=== PATIENT | male | born 1990 | race Caucasian/White ===

== ENCOUNTER 2018-11-08 13:21 | Inpatient (IN) | payer OTHER ==
[2018-11-08 17:01] VITALS: BMI 29.1
--- NOTE | 2018-11-08 17:30 | HP ---
CIWA Score - Admission Criteria [facility] Guidelines: Admission for Medically Managed Detox: Requires at least one of the followin. CIWA greater than 12 2. Seizures within the past 24 hours 3. Delirium tremens within the past 24 hours 4. Hallucinations within the past 24 hours 5. Acute intervention needed for co occurring medical disorder 6. Acute intervention needed for co occurring psychiatric disorder 7. Severe withdrawal that cannot be handled at a lower level of care (continued vomiting, continued diarrhea, abnormal vital signs) requiring intravenous medication and/or fluids 8. Admission ROS [facility] - HPI Chief Complaint: ETOH and Benzo rehab Allergies/Adverse Reactions: Allergies Allergy/AdvReac Type Severity Reaction Status Date / Time No Known Allergies Allergy Verified 11/08/18 17:14 History of Present Illness: 28 yo male with hx of nicotine, xanax, valium and alcohol is here seeking rehabilitation for the first time. Patient reports was release from [facility] yesterday where he completed detox. Patient reports cellulitis of the right lower leg in which he was started on amoxicillin yesterday while in long term. PMHX: Hx of PE Jul 2018, pancreatitis, GERD, manic depression, anxiety. Denies suicidal / homicidal ideation./ Denies hx of seizures. Reports remote hx of ETOH blackout. Exam Limitations: No Limitations - Ebola screening Have you traveled outside of the country in the last 21 days: No Have you had contact with anyone from an Ebola affected area: No Have you been sick,other than usual withdrawal symptoms: No Do you have a fever: No - Review of Systems Constitutional: Chills EENT: reports: No Symptoms Reported Respiratory: reports: No Symptoms reported Cardiac: reports: No Symptoms Reported GI: reports: No Symptoms Reported : reports: No Symptoms Reported Musculoskeletal: reports: No Symptoms Reported Integumentary: reports: Erythema, Other (cellulitis right burrell) Neuro: reports: Headache Endocrine: reports: Excessive Sweating, Increased Thirst Hematology: reports: No Symptoms Reported Psychiatric: reports: Orientated x3, Anxious, Depressed Other Systems: Reviewed and Negative Patient History - Patient Medical History Hx Anemia: No Hx Asthma: No Hx Chronic Obstructive Pulmonary Disease (COPD): No Hx Cancer: No Hx Cardiac Disorders: No Hx Congestive Heart Failure: No Hx Hypertension: No Hx Hypercholesterolemia: No Hx Pacemaker: No HX Cerebrovascular Accident: No Hx Seizures: No Hx Dementia: No Hx Diabetes: No Hx Gastrointestinal Disorders: Yes (acid reflux.) Hx Liver Disease: No Hx Genitourinary Disorders: No Hx Sexually Transmitted Disorders: No Hx Renal Disease (ESRD): No Hx Thyroid Disease: No Hx Human Immunodeficiency Virus (HIV): No (last tested Jun 2018 NEG results ) Hx Hepatitis C: No Hx Depression: Yes Hx Suicide Attempt: No Hx Bipolar Disorder: No Hx Schizophrenia: No - Patient Surgical History Past Surgical History: Yes Hx Abdominal Surgery: Yes (Sx for perforated ulcer in 2012) Anesthesia Reaction: No - PPD History Previous Implant?: Yes Documented Results: Negative w/o proof Implanted On Prior [facility] Admission?: No PPD to be Administered?: Yes - Smoking Cessation Smoking history: Current every day smoker Have you smoked in the past 12 months: Yes Aproximately how many cigarettes per day: 10 Hx Chewing Tobacco Use: No Initiated information on smoking cessation: Yes 'Breaking Loose' booklet given: 11/08/18 - Substance & Tx. History Hx Alcohol Use: Yes Hx Substance Use: Yes Substance Use Type: Alcohol, Tranquilizers Hx Substance Use Treatment: No (Reports seen a psychiatrist in Jun 2018 for alcohol dependence ) - Substances Abused Alcohol Route: Oral Frequency: Daily Amount used: 3-4 pints rum Age of first use: 22 Date of Last Use: 07/13/18 Alprazolam (Xanax) Route: Oral Frequency: Daily Amount used: 4mg Age of first use: 25 Date of Last Use: 07/13/18 Diazepam Route: Oral Frequency: Daily Amount used: 10mg Age of first use: 25 Date of Last Use: 07/13/18 Family Disease History - Family Disease History Family History: Denies Admission Physical Exam [facility] - Vital Signs Vital Signs: Vital Signs - 24 hr 11/08/18 16:59 Temperature 102.7 F H Pulse Rate 112 H Respiratory 18 Rate Blood Pressure 121/71 - Physical General Appearance: Yes: Nourished, Appropriately Dressed, Anxious HEENTM: Yes: EOMI, Hearing grossly Normal, Normal ENT Inspection, Normocephalic , Normal Voice, ZEO, Pharynx Normal, Tm's normal Respiratory: Yes: Chest Non-Tender, Lungs Clear, Normal Breath Sounds, No Respiratory Distress, No Accessory Muscle Use Neck: Yes: Within Normal Limits Breast: Yes: Breast Exam Deferred Cardiology: Yes: Within Normal Limits Abdominal: Yes: Normal Bowel Sounds, Non Tender, Flat, Soft Genitourinary: Yes: Within Normal Limits Back: Yes: Normal Inspection Musculoskeletal: Yes: full range of Motion, Gait Steady, Pelvis Stable Extremities: Yes: Normal Capillary Refill, Normal Range of Motion, Erythema ( right LE, + warm) Neurological: Yes: Within Normal Limits Integumentary: Yes: Warm (right lower extremity), Erythema Lymphatic: Yes: Within Normal Limits - Diagnostic (1) Cellulitis of right lower leg Current Visit: Yes Status: Acute (2) Alcohol dependence Current Visit: Yes Status: Acute Qualifiers: Substance use status: uncomplicated Qualified Code(s): F10.20 - Alcohol dependence, uncomplicated (3) Sedative hypnotic or anxiolytic dependence Current Visit: Yes Status: Acute (4) Hx pulmonary embolism Current Visit: Yes Status: Chronic (5) GERD (gastroesophageal reflux disease) Current Visit: Yes Status: Chronic Qualifiers: Esophagitis presence: without esophagitis Qualified Code(s): K21.9 - Gastro -esophageal reflux disease without esophagitis BHS Breath Alcohol Content Breath Alcohol Content: 0 Urine Drug Screen - Results Drug Screen Negative: Yes Inpatient Rehab Admission - Initial Determination Are CD services needed?: Yes Free of communicable disease: Yes Not in need of hospitalization: Yes - Rehab Admission Criteria Previous failed treatment: No Poor recovery environment: Yes Comorbidities: Yes Lacks judgement: Yes Patient is meeting Inpatient Rehab admission criteria:: Yes
[2018-11-08] MEDS ORDERED: MAGNESIUM CITRATE 300 ML BOTTLE PO PRN (17:35)
[2018-11-08] MEDS ORDERED: LOPERAMIDE HCL 2 MG CAPSULE PO PRN (17:35)
[2018-11-08] MEDS ORDERED: guaiFENesin/D-METHORPHAN HB 10 ML UNIT-DOSE CUPS PO PRN (17:35)
[2018-11-08] MEDS ORDERED: MAGNESIUM HYDROX 2400MG/30ML ORAL SUSPENSION 30 ML CUP PO PRN (17:35)
[2018-11-08] MEDS ORDERED: hydrOXYzine PAMOATE 50 MG CAPSULE (FP) PO PRN (17:35)
[2018-11-08] MEDS ORDERED: MENTHOL/PHENOL 1 EACH UD MM PRN (17:35)
[2018-11-08] MEDS ORDERED: P-EPHED 60MG/TRIPROLIDI 2.5MG TABLET PO PRN (17:35)
[2018-11-08] MEDS ORDERED: MAG HYDROX/AL HYDROX/SIMETH 30 ML UNIT-DOSE CUP PO PRN (17:35)
[2018-11-08] MEDS ORDERED: TUBERCULIN PPD 5 TU/0.1ML VIAL ID ONE (19:03)
[2018-11-08] MEDS: BACITRACIN 0.9 GM PACKET TP SCH (19:41)
[2018-11-08] MEDS: CEPHALEXIN MONOHYDRATE 500 MG CAPSULE (UD) PO SCH ×2 (19:41→23:57)
[2018-11-08] MEDS: ACETAMINOPHEN 325 MG TABLET (FP) PO PRN (19:43)
[2018-11-08] MEDS: THIAMINE HCL 100 MG TABLET (FP) PO SCH (21:25)
[2018-11-08] MEDS: MELATONIN 5 MG TABLETS PO PRN (21:26)
[2018-11-09 01:51] LABS: URINE APPEARANCE TURBID; URINE BILIRUBIN NEGATIVE (<2.0 mg/dL); URINE COLOR RED; URINE GLUCOSE (UA) NEGATIVE (NEGATIVE); URINE KETONE NEGATIVE (NEGATIVE); URINE LEUK ESTERASE NEGATIVE (NEGATIVE); URINE NITRITE NEGATIVE (NEGATIVE); URINE PROTEIN 1+ (NEGATIVE); URINE UROBILINOGEN NEGATIVE mg/dL (0.2-1.0)
[2018-11-09 02:06] LABS: EPI CELLS RARE /HPF (FEW); URINE BACTERIA FEW /hpf (NONE SEEN); URINE MUCUS MANY
[2018-11-09] MEDS: ACETAMINOPHEN 325 MG TABLET (FP) PO PRN ×2 (06:12→17:38)
[2018-11-09] MEDS: CEPHALEXIN MONOHYDRATE 500 MG CAPSULE (UD) PO SCH ×4 (06:12→23:37)
[2018-11-09] MEDS: PANTOPRAZOLE 40 MG TABLET (FP) PO SCH (09:41)
[2018-11-09] MEDS: PRENATAL VITAMINS W/ FOLIC ACID TABLET (FP) PO SCH (09:41)
[2018-11-09] MEDS: RIVAROXABAN 20 MG TABLET PO SCH (09:41)
[2018-11-09] MEDS: BACITRACIN 0.9 GM PACKET TP SCH (09:42)
[2018-11-09] MEDS: NICOTINE 14 MG/24 HOURS TOPICAL PATCH TD SCH (09:42)
--- NOTE | 2018-11-09 10:27 | CONSULT ---
[facility] Psychiatric Consult - Data Date of interview: 11/09/18 Admission source: Drug court Identifying data: Mr Pisano is a 28 years old single male, father of 2 children, unemployed with no source of income, living with his aunt seeking rehab treatment for alcohol and benzodiazepine Substance Abuse History: Reports history of alcohol, xanax and valium use. refer to addiction counselor's summary for further information. Medical History: Significant for cellulitis right lower leg, GERD, history of treatment for pancreatitis and pulmonary emboli and surgery for perforated ulcer in 2012. Smokes 10 cigarettes daily Psychiatric History: Reports that 5-6 years ago, his primary care physician started prescribing him Lexapro, Buspar and Seroquel for depression, anxiety and insomnia. At age 25, he started seeing a private psychiatrist in [place]. He was rediagnosed with Bipolar Disorder and Xanax TID and Valium HS were added to his psychotropic regimen. He saw that private psychiatrist till he was arrested and jailed in [facility] in Jul 2018. He was released from residential on 11/07/18 and referred to this facility on a court mandated treatment. He was seeing a psychiatrist while in residential and he was released on Lexapro 30 mg po daily, Buspar 15 mg po BID and Seroquel 600 mg po HS. Denies previous psychiatric hospitalization or suicidal attempt. At present , Reports feeling very anxious and sleeping poorly Physical/Sexual Abuse/Trauma History: Denies history of emotional, physical or sexual abuse as wel as DV relationship. No service Additional Comment: Reports history of one previous arrest on charges on menacing a police or patrol park officer and reckless endangerment. He is on probation Mental Status Exam - Mental Status Exam Alert and Oriented to: Time, Place, Person Cognitive Function: Fair Patient Appearance: Well Groomed Mood: Anxious (very) Affect: Appropriate Patient Behavior: Cooperative Speech Pattern: Clear Voice Loudness: Normal Thought Process: Intact Thought Disorder: Not Present Hallucinations: Denies Suicidal Ideation: Denies Homicidal Ideation: Denies Insight/Judgement: Fair Sleep: Poorly Appetite: Good Muscle strength/Tone: Normal Gait/Station: Normal Psychiatric Findings - Problem List ([place] 1, 2,3) (1) Bipolar disorder Current Visit: Yes Status: Chronic (2) Anxiety disorder Current Visit: Yes Status: Chronic (3) Substance-induced anxiety disorder Current Visit: Yes Status: Acute (4) Substance-induced sleep disorder Current Visit: Yes Status: Acute (5) Alcohol dependence Current Visit: Yes Status: Acute Qualifiers: Substance use status: uncomplicated Qualified Code(s): F10.20 - Alcohol dependence, uncomplicated (6) Sedative hypnotic or anxiolytic dependence Current Visit: Yes Status: Acute (7) Nicotine dependence Current Visit: Yes Status: Chronic (8) Cellulitis of right lower leg Current Visit: Yes Status: Acute (9) GERD (gastroesophageal reflux disease) Current Visit: Yes Status: Chronic Qualifiers: Esophagitis presence: without esophagitis Qualified Code(s): K21.9 - Gastro -esophageal reflux disease without esophagitis (10) Hx pulmonary embolism Current Visit: Yes Status: Resolved - Initial Treatment Plan Initial Treatment Plan: 1) Continue Lexapro 30 mg po daily, Buspar 15 mg po BID and Seroquel 600 mg po HS. 2) Start Vistaril 50 mg po Q 4hrs prn for anxiety. 3) Continue inpatient detoxification
--- NOTE | 2018-11-09 11:27 | PN ---
[facility] Progress Note Note: C/O DRY AND ITCHY FEET, STATING HE CONTRACTED FOOT FUNGUS IN NURSING HOME.. PT ALSO REPORTS HE HAD PANCREATITIS IN JULY WITH AN INCIDENTAL FINDING OF BLOOD CLOT TO HIS LUNG WHILE INCARCERATED. WAS TAKEN TO [facility] WHERE HE WAS STARTED ON XERALTO AND TOLD TO COME BACK TO THEM FOR SUBSEQUENT FOLLOW UPs. Vital Signs 11/09/18 11/09/18 03:30 06:54 Temperature 99.2 F Pulse Rate 96 H Respiratory 18 18 Rate Blood Pressure 117/68 Laboratory Tests 11/08/18 22:33 Urine Color Red Urine Appearance Turbid Urine pH 6.0 Ur Specific [place] 1.024 Urine Protein 1+ H Urine Glucose (UA) Negative Urine Ketones Negative Urine Blood Negative Urine Nitrite Negative Urine Bilirubin Negative Urine Urobilinogen Negative Ur Leukocyte Esterase Negative Urine WBC (Auto) 2 Urine RBC (Auto) 2 Ur Epithelial Cells Rare Urine Bacteria Few Urine Mucus Many NAD PLAN:TINACTIN CREAM 1% APPLY DIRECTED.
--- NOTE | 2018-11-09 11:42 | EKG ---
Test Reason : Blood Pressure : / mmHG Vent. Rate : 113 BPM Atrial Rate : 113 BPM P-R Int : 170 ms QRS Dur : 094 ms QT Int : 326 ms P-R-T Axes : 038 000 029 degrees QTc Int : 447 ms SINUS TACHYCARDIA OTHERWISE NORMAL ECG NO PREVIOUS ECGS AVAILABLE Confirmed by REMY SEN, LUIS EDUARDO ([id number]) on 11/09/2018 11:41:43 AM Referred By: Confirmed By:LUIS EDUARDO ALBERTO MD
[2018-11-09 11:46] LABS: HEMOGLOBIN 12.7 GM/dL (11.7-16.9); MCH 27.9 pg (25.7-33.7); MCHC 34.3 g/dl (32.0-35.9); MEAN CELL VOLUME 81.5 fl (80-96); MEAN PLT VOLUME 7.8 fl (7.5-11.1); PLATELET COUNT 319 K/MM3 (134-434); RBC 4.54 M/mm3 (4.00-5.60); RDW 14.8 % (11.9-15.9); WHITE BLOOD COUNT 11.6 K/mm3 (4.0-10.0)
[2018-11-09 12:03] LABS: ALBUMIN 4.3 g/dl (3.4-5.0); ALK PHOS 121 U/L (45-117); ANION GAP 5 MMOL/L (8-16); BILIRUBIN,TOTAL 1.1 mg/dL (0.2-1); BLOOD UREA NITROGEN 14 mg/dL (7-18); CALCIUM 9.3 mg/dL (8.5-10.1); CHLORIDE 98 mmol/L (98-107); CO2 31 mmol/L (21-32); GLUCOSE,RANDOM 140 mg/dL (74-106); POTASSIUM 3.6 mmol/L (3.5-5.1); SGOT/AST 32 U/L (15-37); SGPT/ALT 29 U/L (13-61); SODIUM 134 mmol/L (136-145); TOT PROT 8.9 g/dl (6.4-8.2)
[2018-11-09] MEDS: ESCITALOPRAM OXALATE 10 MG TABLET (FP) PO SCH (12:12)
[2018-11-09] MEDS: TOLNAFTATE 1% CREAM 15 GM TUBE TP SCH ×2 (12:13→21:36)
[2018-11-09] MEDS: THIAMINE HCL 100 MG TABLET (FP) PO SCH (21:35)
[2018-11-09] MEDS: QUEtiapine FUMARATE 300 MG TABLET PO SCH (21:36)
[2018-11-10] MEDS: CEPHALEXIN MONOHYDRATE 500 MG CAPSULE (UD) PO SCH ×3 (06:15→17:45)
[2018-11-10] MEDS: NICOTINE 14 MG/24 HOURS TOPICAL PATCH TD SCH (10:38)
[2018-11-10] MEDS: PANTOPRAZOLE 40 MG TABLET (FP) PO SCH (10:39)
[2018-11-10] MEDS: RIVAROXABAN 20 MG TABLET PO SCH (10:39)
[2018-11-10] MEDS: ESCITALOPRAM OXALATE 10 MG TABLET (FP) PO SCH (10:39)
[2018-11-10] MEDS: PRENATAL VITAMINS W/ FOLIC ACID TABLET (FP) PO SCH (10:39)
[2018-11-10] MEDS: ACETAMINOPHEN 325 MG TABLET (FP) PO PRN ×2 (10:40→21:33)
[2018-11-10] MEDS: TOLNAFTATE 1% CREAM 15 GM TUBE TP SCH ×2 (10:42→21:45)
[2018-11-10] MEDS: BACITRACIN 0.9 GM PACKET TP SCH (10:51)
[2018-11-10] MEDS: THIAMINE HCL 100 MG TABLET (FP) PO SCH (21:32)
[2018-11-10] MEDS: QUEtiapine FUMARATE 300 MG TABLET PO SCH (21:32)
[2018-11-11] MEDS: CEPHALEXIN MONOHYDRATE 500 MG CAPSULE (UD) PO SCH ×5 (00:22→23:59)
[2018-11-11] MEDS: PRENATAL VITAMINS W/ FOLIC ACID TABLET (FP) PO SCH (10:09)
[2018-11-11] MEDS: ESCITALOPRAM OXALATE 10 MG TABLET (FP) PO SCH (10:10)
[2018-11-11] MEDS: RIVAROXABAN 20 MG TABLET PO SCH (10:10)
[2018-11-11] MEDS: BACITRACIN 0.9 GM PACKET TP SCH (10:13)
[2018-11-11] MEDS: TOLNAFTATE 1% CREAM 15 GM TUBE TP SCH ×2 (10:56→21:30)
[2018-11-11] MEDS: NICOTINE 14 MG/24 HOURS TOPICAL PATCH TD SCH (10:56)
[2018-11-11] MEDS: PANTOPRAZOLE 40 MG TABLET (FP) PO SCH (10:57)
[2018-11-11] MEDS: QUEtiapine FUMARATE 300 MG TABLET PO SCH (21:29)
[2018-11-11] MEDS: THIAMINE HCL 100 MG TABLET (FP) PO SCH (21:29)
[2018-11-11] MEDS: ACETAMINOPHEN 325 MG TABLET (FP) PO PRN (21:29)
[2018-11-12] MEDS: CEPHALEXIN MONOHYDRATE 500 MG CAPSULE (UD) PO SCH ×3 (06:19→17:49)
[2018-11-12] MEDS: PANTOPRAZOLE 40 MG TABLET (FP) PO SCH (10:09)
[2018-11-12] MEDS: PRENATAL VITAMINS W/ FOLIC ACID TABLET (FP) PO SCH (10:09)
[2018-11-12] MEDS: RIVAROXABAN 20 MG TABLET PO SCH (10:09)
[2018-11-12] MEDS: ESCITALOPRAM OXALATE 10 MG TABLET (FP) PO SCH (10:09)
[2018-11-12] MEDS: NICOTINE 14 MG/24 HOURS TOPICAL PATCH TD SCH (10:10)
[2018-11-12] MEDS: TOLNAFTATE 1% CREAM 15 GM TUBE TP SCH ×2 (10:10→21:35)
[2018-11-12] MEDS: BACITRACIN 0.9 GM PACKET TP SCH (10:10)
[2018-11-12] MEDS: ACETAMINOPHEN 325 MG TABLET (FP) PO PRN ×2 (14:12→21:36)
[2018-11-12] MEDS: THIAMINE HCL 100 MG TABLET (FP) PO SCH (21:34)
[2018-11-12] MEDS: QUEtiapine FUMARATE 300 MG TABLET PO SCH (21:34)
[2018-11-13] MEDS: RIVAROXABAN 20 MG TABLET PO SCH (10:19)
[2018-11-13] MEDS: PANTOPRAZOLE 40 MG TABLET (FP) PO SCH (10:19)
[2018-11-13] MEDS: ESCITALOPRAM OXALATE 10 MG TABLET (FP) PO SCH (10:19)
[2018-11-13] MEDS: TOLNAFTATE 1% CREAM 15 GM TUBE TP SCH ×2 (10:20→21:34)
[2018-11-13] MEDS: NICOTINE 14 MG/24 HOURS TOPICAL PATCH TD SCH (10:20)
[2018-11-13] MEDS: PRENATAL VITAMINS W/ FOLIC ACID TABLET (FP) PO SCH (10:20)
[2018-11-13] MEDS: BACITRACIN 0.9 GM PACKET TP SCH (10:21)
[2018-11-13] MEDS: QUEtiapine FUMARATE 300 MG TABLET PO SCH (21:33)
[2018-11-13] MEDS: ACETAMINOPHEN 325 MG TABLET (FP) PO PRN (21:33)
[2018-11-13] MEDS: THIAMINE HCL 100 MG TABLET (FP) PO SCH (21:33)
[2018-11-14] MEDS: PANTOPRAZOLE 40 MG TABLET (FP) PO SCH (10:33)
[2018-11-14] MEDS: TOLNAFTATE 1% CREAM 15 GM TUBE TP SCH ×2 (10:33→21:47)
[2018-11-14] MEDS: RIVAROXABAN 20 MG TABLET PO SCH (10:33)
[2018-11-14] MEDS: PRENATAL VITAMINS W/ FOLIC ACID TABLET (FP) PO SCH (10:33)
[2018-11-14] MEDS: BACITRACIN 0.9 GM PACKET TP SCH (10:33)
[2018-11-14] MEDS: NICOTINE 14 MG/24 HOURS TOPICAL PATCH TD SCH (10:34)
[2018-11-14] MEDS: ESCITALOPRAM OXALATE 10 MG TABLET (FP) PO SCH (10:34)
[2018-11-14] MEDS: ACETAMINOPHEN 325 MG TABLET (FP) PO PRN ×2 (14:16→21:46)
[2018-11-14] MEDS: QUEtiapine FUMARATE 300 MG TABLET PO SCH (21:46)
[2018-11-14] MEDS: THIAMINE HCL 100 MG TABLET (FP) PO SCH (21:47)
[2018-11-15] MEDS: ESCITALOPRAM OXALATE 10 MG TABLET (FP) PO SCH (10:15)
[2018-11-15] MEDS: PRENATAL VITAMINS W/ FOLIC ACID TABLET (FP) PO SCH (10:15)
[2018-11-15] MEDS: PANTOPRAZOLE 40 MG TABLET (FP) PO SCH (10:15)
[2018-11-15] MEDS: NICOTINE 14 MG/24 HOURS TOPICAL PATCH TD SCH (10:16)
[2018-11-15] MEDS: TOLNAFTATE 1% CREAM 15 GM TUBE TP SCH ×2 (10:17→22:27)
[2018-11-15] MEDS: RIVAROXABAN 20 MG TABLET PO SCH (12:35)
--- NOTE | 2018-11-15 14:51 | PN ---
[facility] Progress Note Note: MAT INTAKE DOCUMENTATION; PT IS A 28 Y/O MALE WITH A HX OF ALCOHOL AND BENZOS(FOR 5 YRS)-XANAX,KLONOPIN AND VALIUM USE ADMITTED TO REHAB ON 11/08/[address] [place] [address] MANDATE. (SEE H /P). PT REPORTS HE HAS NO HX OF MAT OR CD TREATMENT IN THE PAST BUT IS REQUEST FOR MAT WITH VIVTROL. PT HAS A HX GERD, PANCREATITIS,ANXIETY, DEPRESSION. RECENT CELLULITIS WITH TREATMENT WHICH IS NOW RESOLVED. PT HAS MET WITH HIS COUNSELOR STEPHANIE CHEN AND WILL BE ATTENDING [facility] PRO[facility] AFTER DISCHARGE FROM REHAB. Vital Signs - 24 hr 11/15/18 11/15/18 11/15/18 00:30 03:30 07:12 Temperature 97.7 F Pulse Rate 101 H Respiratory 18 18 18 Rate Blood Pressure 111/73 Laboratory Tests 11/08/18 11/09/18 11/09/18 22:33 08:55 08:55 WBC 11.6 H RBC 4.54 Hgb 12.7 Hct 37.0 MCV 81.5 MCH 27.9 MCHC 34.3 RDW 14.8 Plt Count 319 MPV 7.8 Sodium 134 L Potassium 3.6 Chloride 98 Carbon Dioxide 31 Anion Gap 5 L BUN 14 Creatinine 1.0 Creat Clearance w eGFR > 60 Random Glucose 140 H Calcium 9.3 Total Bilirubin 1.1 H AST 32 ALT 29 Alkaline Phosphatase 121 H Total Protein 8.9 H Albumin 4.3 Urine Color Red Urine Appearance Turbid Urine pH 6.0 Ur Specific [place] 1.024 Urine Protein 1+ H Urine Glucose (UA) Negative Urine Ketones Negative Urine Blood Negative Urine Nitrite Negative Urine Bilirubin Negative Urine Urobilinogen Negative Ur Leukocyte Esterase Negative Urine WBC (Auto) 2 Urine RBC (Auto) 2 Ur Epithelial Cells Rare Urine Bacteria Few Urine Mucus Many RPR Titer 11/09/18 08:55 WBC RBC Hgb Hct MCV MCH MCHC RDW Plt Count MPV Sodium Potassium Chloride Carbon Dioxide Anion Gap BUN Creatinine Creat Clearance w eGFR Random Glucose Calcium Total Bilirubin AST ALT Alkaline Phosphatase Total Protein Albumin Urine Color Urine Appearance Urine pH Ur Specific [place] Urine Protein Urine Glucose (UA) Urine Ketones Urine Blood Urine Nitrite Urine Bilirubin Urine Urobilinogen Ur Leukocyte Esterase Urine WBC (Auto) Urine RBC (Auto) Ur Epithelial Cells Urine Bacteria Urine Mucus RPR Titer Nonreactive Home Medication List Medication Instructions Recorded Confirmed Type Buspirone HCl [Buspar -] 15 mg PO BID 11/08/18 11/08/18 History Escitalopram Oxalate [Lexapro -] 30 mg PO DAILY 11/08/18 11/08/18 History Pantoprazole Sodium [Protonix -] 40 mg PO DAILY 11/08/18 11/08/18 History Quetiapine Fumarate [Seroquel -] 600 mg PO HS 11/08/18 11/08/18 History Rivaroxaban [Xarelto -] 20 mg PO DAILY 11/08/18 11/08/18 History Active Medications Generic Name Dose Route Start Last Admin Trade Name Freq PRN Reason Stop Dose Admin Acetaminophen 650 mg 11/08/18 17:35 11/14/18 21:46 Tylenol - PO 650 mg Q4H PRN Administration FEVER Al Hydroxide/Mg Hydroxide 30 ml 11/08/18 17:35 Mylanta Oral Suspension - PO Q6H PRN DYSPEPSIA Buspirone HCl 15 mg 11/09/18 10:45 11/15/18 10:15 Buspar - PO 15 mg BID KARMA Administration Escitalopram Oxalate 30 mg 11/09/18 10:45 11/15/18 10:15 Lexapro - PO 30 mg DAILY KARMA Administration Eucalyptus/Menthol/Phenol/Sorbitol 1 each 11/08/18 17:35 Cepastat Lozenge - MM Q4H PRN SORE THROAT Guaifenesin 10 ml 11/08/18 17:35 Robitussin Dm - PO Q6H PRN COUGH Hydroxyzine Pamoate 50 mg 11/08/18 17:35 11/08/18 21:26 Vistaril - PO 50 mg Q4H PRN Administration AGITATION Loperamide HCl 4 mg 11/08/18 17:35 Imodium - PO Q6H PRN DIARRHEA Magnesium Citrate 300 ml 11/08/18 17:35 Citroma - PO Q48H PRN CONSTIPATION Magnesium Hydroxide 30 ml 11/08/18 17:35 Milk Of Magnesia - PO DAILY PRN CONSTIPATION Melatonin 5 mg 11/08/18 22:00 11/08/18 21:26 Melatonin PO 5 mg HS PRN Administration INSOMNIA Nicotine 14 mg 11/09/18 10:00 11/15/18 10:16 Nicoderm Patch - TD Not Given DAILY KARMA Nicotine Polacrilex 2 mg 11/08/18 17:35 Nicorette Gum - BC Q2H PRN NICOTINE REPLACEMENT RX Pantoprazole Sodium 40 mg 11/09/18 10:00 11/15/18 10:15 Protonix - PO 40 mg DAILY KARAM Administration Multivit/Folic Acid/Iron 1 tab 11/09/18 10:00 11/15/18 10:15 Vitamins ([facility]) - PO 1 tab DAILY KARMA Administration Pseudoephedrine/Triprolidine 1 combo 11/08/18 17:35 Actifed - PO TID PRN NASAL CONGESTION Quetiapine Fumarate 600 mg 11/09/18 22:00 11/14/18 21:46 Seroquel - PO 600 mg HS KARMA Administration Rivaroxaban 20 mg 11/09/18 10:00 11/15/18 12:35 Xarelto - PO 20 mg DAILY KARMA Administration Thiamine HCl 100 mg 11/08/18 22:00 11/14/18 21:47 Vitamin B1 - PO 100 mg HS KARMA Administration Tolnaftate 1 applic 11/09/18 11:30 11/15/18 10:17 Tinactin 1% Cream - TP Not Given BID [facility]-CMP TO BE REPEATED IN THE MORNING. IF NOT WNL PT WILL REPEAT OUT PT AT [facility]. RIGHT LEG CELLULITIS RESOLVED.--NO REDNESS. PLAN:DISCUSSED WITH [employer] HELPER DR. ELAM WELL THE PATIENT AND AGREED RE: MAT TREATMENT. PT WILL BE STARTED WITH NALTREXONE 25 MG PO X 1 CHALLENGE. THEN NALTREXONE 50 MG PO DAILY IF TOLERATED. FOLLOW UP WITH CMP RESULT WHEN DONE ON 11/16/18
[2018-11-15] MEDS: ACETAMINOPHEN 325 MG TABLET (FP) PO PRN (18:54)
[2018-11-15] MEDS: QUEtiapine FUMARATE 300 MG TABLET PO SCH (21:45)
[2018-11-15] MEDS: THIAMINE HCL 100 MG TABLET (FP) PO SCH (21:45)
[2018-11-16] MEDS ORDERED: NALTREXONE HCL 50 MG TABLET PO ONE ×2 (10:00→15:15)
[2018-11-16] MEDS: PRENATAL VITAMINS W/ FOLIC ACID TABLET (FP) PO SCH (10:07)
[2018-11-16] MEDS: NICOTINE 14 MG/24 HOURS TOPICAL PATCH TD SCH (10:07)
[2018-11-16] MEDS: RIVAROXABAN 20 MG TABLET PO SCH (10:07)
[2018-11-16] MEDS: ESCITALOPRAM OXALATE 10 MG TABLET (FP) PO SCH (10:07)
[2018-11-16] MEDS: PANTOPRAZOLE 40 MG TABLET (FP) PO SCH (10:07)
[2018-11-16] MEDS: TOLNAFTATE 1% CREAM 15 GM TUBE TP SCH ×2 (10:08→21:43)
[2018-11-16] MEDS: ACETAMINOPHEN 325 MG TABLET (FP) PO PRN (10:09)
[2018-11-16 10:57] LABS: ALK PHOS 119 U/L (45-117); ANION GAP 9 MMOL/L (8-16); BILIRUBIN,TOTAL 0.4 mg/dL (0.2-1); BLOOD UREA NITROGEN 16 mg/dL (7-18); CALCIUM 9.6 mg/dL (8.5-10.1); CHLORIDE 103 mmol/L (98-107); CO2 28 mmol/L (21-32); CREATININE 0.9 mg/dL (0.55-1.3); GLUCOSE,RANDOM 128 mg/dL (74-106); POTASSIUM 4.2 mmol/L (3.5-5.1); SGOT/AST 24 U/L (15-37); SGPT/ALT 52 U/L (13-61); SODIUM 140 mmol/L (136-145); TOT PROT 8.4 g/dl (6.4-8.2)
--- NOTE | 2018-11-16 15:07 | PN ---
[facility] Progress Note Note: NALTREXONE 25 MG PO X 1 DOSE GIVEN TODAY FOR CHALLENGE PROTOCOL. Vital Signs - 24 hr 11/16/18 11/16/18 11/16/18 00:30 03:30 06:56 Temperature 98.0 F Pulse Rate 77 Respiratory 18 18 18 Rate Blood Pressure 131/76 Laboratory Tests 11/08/18 11/09/18 11/09/18 22:33 08:55 08:55 WBC 11.6 H RBC 4.54 Hgb 12.7 Hct 37.0 MCV 81.5 MCH 27.9 MCHC 34.3 RDW 14.8 Plt Count 319 MPV 7.8 Sodium 134 L Potassium 3.6 Chloride 98 Carbon Dioxide 31 Anion Gap 5 L BUN 14 Creatinine 1.0 Creat Clearance w eGFR > 60 Random Glucose 140 H Calcium 9.3 Total Bilirubin 1.1 H AST 32 ALT 29 Alkaline Phosphatase 121 H Total Protein 8.9 H Albumin 4.3 Urine Color Red Urine Appearance Turbid Urine pH 6.0 Ur Specific [place] 1.024 Urine Protein 1+ H Urine Glucose (UA) Negative Urine Ketones Negative Urine Blood Negative Urine Nitrite Negative Urine Bilirubin Negative Urine Urobilinogen Negative Ur Leukocyte Esterase Negative Urine WBC (Auto) 2 Urine RBC (Auto) 2 Ur Epithelial Cells Rare Urine Bacteria Few Urine Mucus Many RPR Titer 11/09/18 11/16/18 08:55 07:35 WBC RBC Hgb Hct MCV MCH MCHC RDW Plt Count MPV Sodium 140 Potassium 4.2 Chloride 103 Carbon Dioxide 28 Anion Gap 9 BUN 16 Creatinine 0.9 Creat Clearance w eGFR > 60 Random Glucose 128 H Calcium 9.6 Total Bilirubin 0.4 AST 24 ALT 52 Alkaline Phosphatase 119 H Total Protein 8.4 H Albumin 4.0 Urine Color Urine Appearance Urine pH Ur Specific [place] Urine Protein Urine Glucose (UA) Urine Ketones Urine Blood Urine Nitrite Urine Bilirubin Urine Urobilinogen Ur Leukocyte Esterase Urine WBC (Auto) Urine RBC (Auto) Ur Epithelial Cells Urine Bacteria Urine Mucus RPR Titer Nonreactive ALK PHOS SLIGHTLY IMPROVED.
[2018-11-16] MEDS: QUEtiapine FUMARATE 300 MG TABLET PO SCH (21:43)
[2018-11-16] MEDS: THIAMINE HCL 100 MG TABLET (FP) PO SCH (21:43)
[2018-11-17] MEDS: PANTOPRAZOLE 40 MG TABLET (FP) PO SCH (10:33)
[2018-11-17] MEDS: PRENATAL VITAMINS W/ FOLIC ACID TABLET (FP) PO SCH (10:33)
[2018-11-17] MEDS: RIVAROXABAN 20 MG TABLET PO SCH (10:33)
[2018-11-17] MEDS: NICOTINE 14 MG/24 HOURS TOPICAL PATCH TD SCH (10:34)
[2018-11-17] MEDS: ESCITALOPRAM OXALATE 10 MG TABLET (FP) PO SCH (10:34)
[2018-11-17] MEDS: NALTREXONE HCL 50 MG TABLET PO SCH (10:34)
[2018-11-17] MEDS: TOLNAFTATE 1% CREAM 15 GM TUBE TP SCH ×2 (10:34→21:23)
[2018-11-17] MEDS: ACETAMINOPHEN 325 MG TABLET (FP) PO PRN ×3 (10:35→21:23)
[2018-11-17] MEDS: QUEtiapine FUMARATE 300 MG TABLET PO SCH (21:22)
[2018-11-17] MEDS: THIAMINE HCL 100 MG TABLET (FP) PO SCH (21:22)
[2018-11-18] MEDS: PRENATAL VITAMINS W/ FOLIC ACID TABLET (FP) PO SCH (10:39)
[2018-11-18] MEDS: RIVAROXABAN 20 MG TABLET PO SCH (10:39)
[2018-11-18] MEDS: ESCITALOPRAM OXALATE 10 MG TABLET (FP) PO SCH (10:39)
[2018-11-18] MEDS: PANTOPRAZOLE 40 MG TABLET (FP) PO SCH (10:39)
[2018-11-18] MEDS: NALTREXONE HCL 50 MG TABLET PO SCH (10:39)
[2018-11-18] MEDS: NICOTINE 14 MG/24 HOURS TOPICAL PATCH TD SCH (10:39)
[2018-11-18] MEDS: TOLNAFTATE 1% CREAM 15 GM TUBE TP SCH ×2 (10:39→21:53)
[2018-11-18] MEDS: ACETAMINOPHEN 325 MG TABLET (FP) PO PRN ×2 (14:22→19:06)
[2018-11-18] MEDS: QUEtiapine FUMARATE 300 MG TABLET PO SCH (21:52)
[2018-11-18] MEDS: THIAMINE HCL 100 MG TABLET (FP) PO SCH (21:52)
[2018-11-19] MEDS: PRENATAL VITAMINS W/ FOLIC ACID TABLET (FP) PO SCH (10:27)
[2018-11-19] MEDS: NALTREXONE HCL 50 MG TABLET PO SCH (10:27)
[2018-11-19] MEDS: ESCITALOPRAM OXALATE 10 MG TABLET (FP) PO SCH (10:27)
[2018-11-19] MEDS: RIVAROXABAN 20 MG TABLET PO SCH (10:27)
[2018-11-19] MEDS: PANTOPRAZOLE 40 MG TABLET (FP) PO SCH (10:27)
[2018-11-19] MEDS: TOLNAFTATE 1% CREAM 15 GM TUBE TP SCH ×2 (10:28→21:38)
[2018-11-19] MEDS: ACETAMINOPHEN 325 MG TABLET (FP) PO PRN (10:28)
[2018-11-19] MEDS: NICOTINE 14 MG/24 HOURS TOPICAL PATCH TD SCH (10:52)
[2018-11-19] MEDS: THIAMINE HCL 100 MG TABLET (FP) PO SCH (21:37)
[2018-11-19] MEDS: QUEtiapine FUMARATE 300 MG TABLET PO SCH (21:37)
[2018-11-19] MEDS: MELATONIN 5 MG TABLETS PO PRN (21:38)
[2018-11-20] MEDS: PRENATAL VITAMINS W/ FOLIC ACID TABLET (FP) PO SCH (10:19)
[2018-11-20] MEDS: RIVAROXABAN 20 MG TABLET PO SCH (10:19)
[2018-11-20] MEDS: NICOTINE 14 MG/24 HOURS TOPICAL PATCH TD SCH (10:20)
[2018-11-20] MEDS: NALTREXONE HCL 50 MG TABLET PO SCH (10:20)
[2018-11-20] MEDS: ESCITALOPRAM OXALATE 10 MG TABLET (FP) PO SCH (10:20)
[2018-11-20] MEDS: TOLNAFTATE 1% CREAM 15 GM TUBE TP SCH ×2 (10:20→21:35)
[2018-11-20] MEDS: PANTOPRAZOLE 40 MG TABLET (FP) PO SCH (10:20)
[2018-11-20] MEDS: MELATONIN 5 MG TABLETS PO PRN (21:35)
[2018-11-20] MEDS: QUEtiapine FUMARATE 300 MG TABLET PO SCH (21:35)
[2018-11-20] MEDS: THIAMINE HCL 100 MG TABLET (FP) PO SCH (21:35)
[2018-11-21] MEDS: NICOTINE 14 MG/24 HOURS TOPICAL PATCH TD SCH (10:03)
[2018-11-21] MEDS: PANTOPRAZOLE 40 MG TABLET (FP) PO SCH (10:04)
[2018-11-21] MEDS: NALTREXONE HCL 50 MG TABLET PO SCH (10:04)
[2018-11-21] MEDS: RIVAROXABAN 20 MG TABLET PO SCH (10:04)
[2018-11-21] MEDS: PRENATAL VITAMINS W/ FOLIC ACID TABLET (FP) PO SCH (10:04)
[2018-11-21] MEDS: ESCITALOPRAM OXALATE 10 MG TABLET (FP) PO SCH (10:05)
[2018-11-21] MEDS: TOLNAFTATE 1% CREAM 15 GM TUBE TP SCH ×2 (10:06→21:48)
[2018-11-21] MEDS: ACETAMINOPHEN 325 MG TABLET (FP) PO PRN (10:06)
[2018-11-21] MEDS: THIAMINE HCL 100 MG TABLET (FP) PO SCH (21:47)
[2018-11-21] MEDS: MELATONIN 5 MG TABLETS PO PRN (21:48)
[2018-11-21] MEDS: QUEtiapine FUMARATE 300 MG TABLET PO SCH (21:48)
[2018-11-22] MEDS: ACETAMINOPHEN 325 MG TABLET (FP) PO PRN ×3 (10:52→21:50)
[2018-11-22] MEDS: PANTOPRAZOLE 40 MG TABLET (FP) PO SCH (10:53)
[2018-11-22] MEDS: RIVAROXABAN 20 MG TABLET PO SCH (10:53)
[2018-11-22] MEDS: PRENATAL VITAMINS W/ FOLIC ACID TABLET (FP) PO SCH (10:53)
[2018-11-22] MEDS: NICOTINE 14 MG/24 HOURS TOPICAL PATCH TD SCH (10:53)
[2018-11-22] MEDS: NALTREXONE HCL 50 MG TABLET PO SCH (10:53)
[2018-11-22] MEDS: ESCITALOPRAM OXALATE 10 MG TABLET (FP) PO SCH (10:53)
[2018-11-22] MEDS: TOLNAFTATE 1% CREAM 15 GM TUBE TP SCH ×2 (11:10→21:51)
[2018-11-22] MEDS: QUEtiapine FUMARATE 300 MG TABLET PO SCH (21:49)
[2018-11-22] MEDS: MELATONIN 5 MG TABLETS PO PRN (21:49)
[2018-11-22] MEDS: THIAMINE HCL 100 MG TABLET (FP) PO SCH (21:49)
[2018-11-23] MEDS: NICOTINE 14 MG/24 HOURS TOPICAL PATCH TD SCH (10:33)
[2018-11-23] MEDS: NALTREXONE HCL 50 MG TABLET PO SCH (10:33)
[2018-11-23] MEDS: ESCITALOPRAM OXALATE 10 MG TABLET (FP) PO SCH (10:33)
[2018-11-23] MEDS: PANTOPRAZOLE 40 MG TABLET (FP) PO SCH (10:33)
[2018-11-23] MEDS: PRENATAL VITAMINS W/ FOLIC ACID TABLET (FP) PO SCH (10:33)
[2018-11-23] MEDS: TOLNAFTATE 1% CREAM 15 GM TUBE TP SCH ×2 (10:34→21:40)
[2018-11-23] MEDS: RIVAROXABAN 20 MG TABLET PO SCH (10:34)
[2018-11-23] MEDS: NICOTINE POLACRILEX 2 MG GUM BC PRN (21:39)
[2018-11-23] MEDS: MELATONIN 5 MG TABLETS PO PRN (21:39)
[2018-11-23] MEDS: QUEtiapine FUMARATE 300 MG TABLET PO SCH (21:39)
[2018-11-23] MEDS: THIAMINE HCL 100 MG TABLET (FP) PO SCH (21:39)
[2018-11-23] MEDS: ACETAMINOPHEN 325 MG TABLET (FP) PO PRN (21:40)
[2018-11-24] MEDS: ESCITALOPRAM OXALATE 10 MG TABLET (FP) PO SCH (10:27)
[2018-11-24] MEDS: PANTOPRAZOLE 40 MG TABLET (FP) PO SCH (10:27)
[2018-11-24] MEDS: NALTREXONE HCL 50 MG TABLET PO SCH (10:27)
[2018-11-24] MEDS: PRENATAL VITAMINS W/ FOLIC ACID TABLET (FP) PO SCH (10:27)
[2018-11-24] MEDS: NICOTINE POLACRILEX 2 MG GUM BC PRN ×4 (10:29→21:36)
[2018-11-24] MEDS: RIVAROXABAN 20 MG TABLET PO SCH (11:06)
[2018-11-24] MEDS: NICOTINE 14 MG/24 HOURS TOPICAL PATCH TD SCH (11:06)
[2018-11-24] MEDS: TOLNAFTATE 1% CREAM 15 GM TUBE TP SCH ×2 (11:06→21:37)
[2018-11-24] MEDS: ACETAMINOPHEN 325 MG TABLET (FP) PO PRN (18:10)
[2018-11-24] MEDS: QUEtiapine FUMARATE 300 MG TABLET PO SCH (21:35)
[2018-11-24] MEDS: THIAMINE HCL 100 MG TABLET (FP) PO SCH (21:36)
[2018-11-24] MEDS: MELATONIN 5 MG TABLETS PO PRN (21:36)
[2018-11-25] MEDS: ESCITALOPRAM OXALATE 10 MG TABLET (FP) PO SCH (10:15)
[2018-11-25] MEDS: PRENATAL VITAMINS W/ FOLIC ACID TABLET (FP) PO SCH (10:15)
[2018-11-25] MEDS: RIVAROXABAN 20 MG TABLET PO SCH (10:16)
[2018-11-25] MEDS: TOLNAFTATE 1% CREAM 15 GM TUBE TP SCH ×2 (10:16→21:32)
[2018-11-25] MEDS: NICOTINE 14 MG/24 HOURS TOPICAL PATCH TD SCH (10:16)
[2018-11-25] MEDS: NALTREXONE HCL 50 MG TABLET PO SCH (10:16)
[2018-11-25] MEDS: PANTOPRAZOLE 40 MG TABLET (FP) PO SCH (10:16)
[2018-11-25] MEDS: NICOTINE POLACRILEX 2 MG GUM BC PRN ×3 (10:17→21:31)
[2018-11-25] MEDS: ACETAMINOPHEN 325 MG TABLET (FP) PO PRN ×2 (14:20→21:32)
[2018-11-25] MEDS: MELATONIN 5 MG TABLETS PO PRN (21:31)
[2018-11-25] MEDS: QUEtiapine FUMARATE 300 MG TABLET PO SCH (21:31)
[2018-11-25] MEDS: THIAMINE HCL 100 MG TABLET (FP) PO SCH (21:32)
[2018-11-26] MEDS: NICOTINE 14 MG/24 HOURS TOPICAL PATCH TD SCH (09:58)
[2018-11-26] MEDS: ESCITALOPRAM OXALATE 10 MG TABLET (FP) PO SCH (09:59)
[2018-11-26] MEDS: PRENATAL VITAMINS W/ FOLIC ACID TABLET (FP) PO SCH (09:59)
[2018-11-26] MEDS: PANTOPRAZOLE 40 MG TABLET (FP) PO SCH (09:59)
[2018-11-26] MEDS: TOLNAFTATE 1% CREAM 15 GM TUBE TP SCH ×2 (10:00→21:21)
[2018-11-26] MEDS: NALTREXONE HCL 50 MG TABLET PO SCH (10:00)
[2018-11-26] MEDS: RIVAROXABAN 20 MG TABLET PO SCH (10:00)
[2018-11-26] MEDS: ACETAMINOPHEN 325 MG TABLET (FP) PO PRN ×2 (10:01→21:22)
[2018-11-26] MEDS: NICOTINE POLACRILEX 2 MG GUM BC PRN (10:01)
[2018-11-26] MEDS: THIAMINE HCL 100 MG TABLET (FP) PO SCH (21:21)
[2018-11-26] MEDS: MELATONIN 5 MG TABLETS PO PRN (21:22)
[2018-11-26] MEDS: QUEtiapine FUMARATE 300 MG TABLET PO SCH (21:22)
[2018-11-27] MEDS: NICOTINE 14 MG/24 HOURS TOPICAL PATCH TD SCH (10:15)
[2018-11-27] MEDS: TOLNAFTATE 1% CREAM 15 GM TUBE TP SCH ×2 (10:16→22:17)
[2018-11-27] MEDS: NALTREXONE HCL 50 MG TABLET PO SCH (10:16)
[2018-11-27] MEDS: PANTOPRAZOLE 40 MG TABLET (FP) PO SCH (10:16)
[2018-11-27] MEDS: ESCITALOPRAM OXALATE 10 MG TABLET (FP) PO SCH (10:16)
[2018-11-27] MEDS: PRENATAL VITAMINS W/ FOLIC ACID TABLET (FP) PO SCH (10:16)
[2018-11-27] MEDS: RIVAROXABAN 20 MG TABLET PO SCH (10:16)
[2018-11-27] MEDS: NICOTINE POLACRILEX 2 MG GUM BC PRN (10:18)
[2018-11-27 10:51] LABS: ALBUMIN 3.6 g/dl (3.4-5.0); ALK PHOS 100 U/L (45-117); ANION GAP 5 MMOL/L (8-16); BILIRUBIN,TOTAL 0.5 mg/dL (0.2-1); BLOOD UREA NITROGEN 16 mg/dL (7-18); CALCIUM 9.1 mg/dL (8.5-10.1); CHLORIDE 102 mmol/L (98-107); CO2 30 mmol/L (21-32); CREATININE 0.9 mg/dL (0.55-1.3); GLUCOSE,RANDOM 98 mg/dL (74-106); POTASSIUM 4.2 mmol/L (3.5-5.1); SGOT/AST 22 U/L (15-37); SGPT/ALT 29 U/L (13-61); SODIUM 138 mmol/L (136-145); TOT PROT 7.5 g/dl (6.4-8.2)
[2018-11-27] MEDS: QUEtiapine FUMARATE 300 MG TABLET PO SCH (21:40)
[2018-11-27] MEDS: MELATONIN 5 MG TABLETS PO PRN (21:40)
[2018-11-27] MEDS: THIAMINE HCL 100 MG TABLET (FP) PO SCH (21:40)
[2018-11-28] MEDS: ESCITALOPRAM OXALATE 10 MG TABLET (FP) PO SCH (10:36)
[2018-11-28] MEDS: PANTOPRAZOLE 40 MG TABLET (FP) PO SCH (10:36)
[2018-11-28] MEDS: NALTREXONE HCL 50 MG TABLET PO SCH (10:36)
[2018-11-28] MEDS: PRENATAL VITAMINS W/ FOLIC ACID TABLET (FP) PO SCH (10:36)
[2018-11-28] MEDS: RIVAROXABAN 20 MG TABLET PO SCH (10:36)
[2018-11-28] MEDS: NICOTINE 14 MG/24 HOURS TOPICAL PATCH TD SCH (10:36)
[2018-11-28] MEDS: TOLNAFTATE 1% CREAM 15 GM TUBE TP SCH ×2 (10:36→21:50)
[2018-11-28] MEDS: NICOTINE POLACRILEX 2 MG GUM BC PRN ×4 (10:38→21:50)
[2018-11-28] MEDS: ACETAMINOPHEN 325 MG TABLET (FP) PO PRN ×3 (13:15→21:49)
--- NOTE | 2018-11-28 16:41 | PN ---
[facility] Progress Note Note: Laboratory Tests 11/08/18 11/09/18 11/09/18 22:33 08:55 08:55 WBC 11.6 H RBC 4.54 Hgb 12.7 Hct 37.0 MCV 81.5 MCH 27.9 MCHC 34.3 RDW 14.8 Plt Count 319 MPV 7.8 Sodium 134 L Potassium 3.6 Chloride 98 Carbon Dioxide 31 Anion Gap 5 L BUN 14 Creatinine 1.0 Creat Clearance w eGFR > 60 Random Glucose 140 H Calcium 9.3 Total Bilirubin 1.1 H AST 32 ALT 29 Alkaline Phosphatase 121 H Total Protein 8.9 H Albumin 4.3 Urine Color Red Urine Appearance Turbid Urine pH 6.0 Ur Specific [place] 1.024 Urine Protein 1+ H Urine Glucose (UA) Negative Urine Ketones Negative Urine Blood Negative Urine Nitrite Negative Urine Bilirubin Negative Urine Urobilinogen Negative Ur Leukocyte Esterase Negative Urine WBC (Auto) 2 Urine RBC (Auto) 2 Ur Epithelial Cells Rare Urine Bacteria Few Urine Mucus Many RPR Titer 11/09/18 11/16/18 11/27/18 08:55 07:35 07:50 WBC RBC Hgb Hct MCV MCH MCHC RDW Plt Count MPV Sodium 140 138 Potassium 4.2 4.2 Chloride 103 102 Carbon Dioxide 28 30 Anion Gap 9 5 L BUN 16 16 Creatinine 0.9 0.9 Creat Clearance w eGFR > 60 > 60 Random Glucose 128 H 98 Calcium 9.6 9.1 Total Bilirubin 0.4 0.5 AST 24 22 ALT 52 29 Alkaline Phosphatase 119 H 100 Total Protein 8.4 H 7.5 Albumin 4.0 3.6 Urine Color Urine Appearance Urine pH Ur Specific [place] Urine Protein Urine Glucose (UA) Urine Ketones Urine Blood Urine Nitrite Urine Bilirubin Urine Urobilinogen Ur Leukocyte Esterase Urine WBC (Auto) Urine RBC (Auto) Ur Epithelial Cells Urine Bacteria Urine Mucus RPR Titer Nonreactive LIVER ENZYMES IMPROVED.
[2018-11-28] MEDS: QUEtiapine FUMARATE 300 MG TABLET PO SCH (21:48)
[2018-11-28] MEDS: THIAMINE HCL 100 MG TABLET (FP) PO SCH (21:48)
[2018-11-28] MEDS: MELATONIN 5 MG TABLETS PO PRN (21:49)
[2018-11-29] MEDS: ESCITALOPRAM OXALATE 10 MG TABLET (FP) PO SCH (10:31)
[2018-11-29] MEDS: NALTREXONE HCL 50 MG TABLET PO SCH (10:32)
[2018-11-29] MEDS: RIVAROXABAN 20 MG TABLET PO SCH (10:32)
[2018-11-29] MEDS: PRENATAL VITAMINS W/ FOLIC ACID TABLET (FP) PO SCH (10:32)
[2018-11-29] MEDS: PANTOPRAZOLE 40 MG TABLET (FP) PO SCH (10:32)
[2018-11-29] MEDS: TOLNAFTATE 1% CREAM 15 GM TUBE TP SCH ×2 (10:33→21:37)
[2018-11-29] MEDS: NICOTINE 14 MG/24 HOURS TOPICAL PATCH TD SCH (10:33)
[2018-11-29] MEDS: NICOTINE POLACRILEX 2 MG GUM BC PRN ×2 (10:33→18:10)
[2018-11-29] MEDS: THIAMINE HCL 100 MG TABLET (FP) PO SCH (21:35)
[2018-11-29] MEDS: QUEtiapine FUMARATE 300 MG TABLET PO SCH (21:36)
[2018-11-29] MEDS: ACETAMINOPHEN 325 MG TABLET (FP) PO PRN (21:36)
[2018-11-29] MEDS: MELATONIN 5 MG TABLETS PO PRN (21:36)
[2018-11-30] MEDS: PRENATAL VITAMINS W/ FOLIC ACID TABLET (FP) PO SCH (10:29)
[2018-11-30] MEDS: NALTREXONE HCL 50 MG TABLET PO SCH (10:29)
[2018-11-30] MEDS: NICOTINE 14 MG/24 HOURS TOPICAL PATCH TD SCH (10:29)
[2018-11-30] MEDS: NICOTINE POLACRILEX 2 MG GUM BC PRN ×3 (10:29→17:34)
[2018-11-30] MEDS: ESCITALOPRAM OXALATE 10 MG TABLET (FP) PO SCH (10:29)
[2018-11-30] MEDS: RIVAROXABAN 20 MG TABLET PO SCH (10:29)
[2018-11-30] MEDS: TOLNAFTATE 1% CREAM 15 GM TUBE TP SCH ×2 (10:29→21:38)
[2018-11-30] MEDS: PANTOPRAZOLE 40 MG TABLET (FP) PO SCH (10:29)
--- NOTE | 2018-11-30 14:31 | PN ---
[facility] Progress Note Note: PT WAS SEEN TODAY WITH THE MEDICAL AND COUNSELLING TEAM RE:REQUEST FOR VIVITROL INJ FOR MAT. PT HAS BEEN ON NALTREXONE 50 MG PO DAILY BUT REQUESTING FOR THE MONTHLY INJECTION. PT WAS COUNSELLED BY THE [place] [employer] BLAST[employer], DR. ELAM AND NEUROSURGERY PHYSICIAN ON THE TREATMENT MODALITY AND SIDE EFFECTS. PT IS CURRENTLY ON XARELTO 20 MG PO DAILY FOR PE BUT MAINTAINS NO HX OF BLEEDING FROM PAST INJECTIONS AND PHLEBOTOMY PROCEDURES. ALL INFORMATION AND BLEEDING POSSIBILITIES EXPLAINED TO PATIENT AND PATIENT EXPRESSED INTEREST TO INITIATE MONTHLY TREATMENT AND CONTINUE IN AFTERCARE WHEN DISCHARGED. ALERT O X 3. Laboratory Tests 11/08/18 11/09/18 11/09/18 22:33 08:55 08:55 WBC 11.6 H RBC 4.54 Hgb 12.7 Hct 37.0 MCV 81.5 MCH 27.9 MCHC 34.3 RDW 14.8 Plt Count 319 MPV 7.8 Sodium 134 L Potassium 3.6 Chloride 98 Carbon Dioxide 31 Anion Gap 5 L BUN 14 Creatinine 1.0 Creat Clearance w eGFR > 60 Random Glucose 140 H Calcium 9.3 Total Bilirubin 1.1 H AST 32 ALT 29 Alkaline Phosphatase 121 H Total Protein 8.9 H Albumin 4.3 Urine Color Red Urine Appearance Turbid Urine pH 6.0 Ur Specific [place] 1.024 Urine Protein 1+ H Urine Glucose (UA) Negative Urine Ketones Negative Urine Blood Negative Urine Nitrite Negative Urine Bilirubin Negative Urine Urobilinogen Negative Ur Leukocyte Esterase Negative Urine WBC (Auto) 2 Urine RBC (Auto) 2 Ur Epithelial Cells Rare Urine Bacteria Few Urine Mucus Many RPR Titer 11/09/18 11/16/18 11/27/18 08:55 07:35 07:50 WBC RBC Hgb Hct MCV MCH MCHC RDW Plt Count MPV Sodium 140 138 Potassium 4.2 4.2 Chloride 103 102 Carbon Dioxide 28 30 Anion Gap 9 5 L BUN 16 16 Creatinine 0.9 0.9 Creat Clearance w eGFR > 60 > 60 Random Glucose 128 H 98 Calcium 9.6 9.1 Total Bilirubin 0.4 0.5 AST 24 22 ALT 52 29 Alkaline Phosphatase 119 H 100 Total Protein 8.4 H 7.5 Albumin 4.0 3.6 Urine Color Urine Appearance Urine pH Ur Specific [place] Urine Protein Urine Glucose (UA) Urine Ketones Urine Blood Urine Nitrite Urine Bilirubin Urine Urobilinogen Ur Leukocyte Esterase Urine WBC (Auto) Urine RBC (Auto) Ur Epithelial Cells Urine Bacteria Urine Mucus RPR Titer Nonreactive NAD MAT PLAN;VIVITROL 380 MG INJ. IM X 1 TO BE ADMINISTERED ON 12/01/18. PT SIGNED CONSENT IN PRESENCE OF NEUROSURGERY PHYSICIAN AND AGREED WITH PLAN OF CARE.
[2018-11-30] MEDS: MELATONIN 5 MG TABLETS PO PRN (21:37)
[2018-11-30] MEDS: QUEtiapine FUMARATE 300 MG TABLET PO SCH (21:37)
[2018-11-30] MEDS: THIAMINE HCL 100 MG TABLET (FP) PO SCH (21:38)
[2018-11-30] MEDS: ACETAMINOPHEN 325 MG TABLET (FP) PO PRN (21:38)
[2018-12-01] MEDS: ESCITALOPRAM OXALATE 10 MG TABLET (FP) PO SCH (10:05)
[2018-12-01] MEDS: PRENATAL VITAMINS W/ FOLIC ACID TABLET (FP) PO SCH (10:05)
[2018-12-01] MEDS: PANTOPRAZOLE 40 MG TABLET (FP) PO SCH (10:06)
[2018-12-01] MEDS: NICOTINE 14 MG/24 HOURS TOPICAL PATCH TD SCH (10:06)
[2018-12-01] MEDS: RIVAROXABAN 20 MG TABLET PO SCH (10:06)
[2018-12-01] MEDS: TOLNAFTATE 1% CREAM 15 GM TUBE TP SCH ×2 (10:06→21:38)
[2018-12-01] MEDS: NICOTINE POLACRILEX 2 MG GUM BC PRN ×3 (10:06→18:16)
[2018-12-01] MEDS ORDERED: NALTREXONE MICROSPHERES (VIVITROL) 380 MG DISP.SYRIN IM ONE (14:00)
[2018-12-01] MEDS: ACETAMINOPHEN 325 MG TABLET (FP) PO PRN (14:27)
--- NOTE | 2018-12-01 16:27 | PN ---
[facility] Progress Note Note: PT RECEIVED VIVITROL 380 MG INJ, I.M X 1 TODAY ON RIGHT GLUTEAL MUSCLE(SEE NURSE 'S NOTE) PT REPORTS TOLERATED WELL. PER PT'S COUNSELOR, STEPHANIE CHEN PT WILL FOLLOW UP WITH CD AFTERCARE AT [facility] THEN RETIREMENT CARE AT [facility] WHEN BED AVAILABLE AT DISCHARGE. ALERT O X 3. Vital Signs - 24 hr 12/01/18 12/01/18 12/01/18 00:30 03:30 07:15 Temperature 97.4 F L Pulse Rate 90 Respiratory 18 18 18 Rate Blood Pressure 106/76 Laboratory Tests 11/08/18 11/09/18 11/09/18 22:33 08:55 08:55 WBC 11.6 H RBC 4.54 Hgb 12.7 Hct 37.0 MCV 81.5 MCH 27.9 MCHC 34.3 RDW 14.8 Plt Count 319 MPV 7.8 Sodium 134 L Potassium 3.6 Chloride 98 Carbon Dioxide 31 Anion Gap 5 L BUN 14 Creatinine 1.0 Creat Clearance w eGFR > 60 Random Glucose 140 H Calcium 9.3 Total Bilirubin 1.1 H AST 32 ALT 29 Alkaline Phosphatase 121 H Total Protein 8.9 H Albumin 4.3 Urine Color Red Urine Appearance Turbid Urine pH 6.0 Ur Specific [place] 1.024 Urine Protein 1+ H Urine Glucose (UA) Negative Urine Ketones Negative Urine Blood Negative Urine Nitrite Negative Urine Bilirubin Negative Urine Urobilinogen Negative Ur Leukocyte Esterase Negative Urine WBC (Auto) 2 Urine RBC (Auto) 2 Ur Epithelial Cells Rare Urine Bacteria Few Urine Mucus Many RPR Titer 11/09/18 11/16/18 11/27/18 08:55 07:35 07:50 WBC RBC Hgb Hct MCV MCH MCHC RDW Plt Count MPV Sodium 140 138 Potassium 4.2 4.2 Chloride 103 102 Carbon Dioxide 28 30 Anion Gap 9 5 L BUN 16 16 Creatinine 0.9 0.9 Creat Clearance w eGFR > 60 > 60 Random Glucose 128 H 98 Calcium 9.6 9.1 Total Bilirubin 0.4 0.5 AST 24 22 ALT 52 29 Alkaline Phosphatase 119 H 100 Total Protein 8.4 H 7.5 Albumin 4.0 3.6 Urine Color Urine Appearance Urine pH Ur Specific [place] Urine Protein Urine Glucose (UA) Urine Ketones Urine Blood Urine Nitrite Urine Bilirubin Urine Urobilinogen Ur Leukocyte Esterase Urine WBC (Auto) Urine RBC (Auto) Ur Epithelial Cells Urine Bacteria Urine Mucus RPR Titer Nonreactive NAD PT INSTRUCTED TO INFORM STAFF OF ANY UNUSUAL SYMPTOMS OR BLEEDING.
[2018-12-01] MEDS: THIAMINE HCL 100 MG TABLET (FP) PO SCH (21:37)
[2018-12-01] MEDS: MELATONIN 5 MG TABLETS PO PRN (21:37)
[2018-12-01] MEDS: QUEtiapine FUMARATE 300 MG TABLET PO SCH (21:37)
[2018-12-02] MEDS: PRENATAL VITAMINS W/ FOLIC ACID TABLET (FP) PO SCH (10:23)
[2018-12-02] MEDS: TOLNAFTATE 1% CREAM 15 GM TUBE TP SCH ×2 (10:23→21:45)
[2018-12-02] MEDS: PANTOPRAZOLE 40 MG TABLET (FP) PO SCH (10:23)
[2018-12-02] MEDS: ESCITALOPRAM OXALATE 10 MG TABLET (FP) PO SCH (10:23)
[2018-12-02] MEDS: RIVAROXABAN 20 MG TABLET PO SCH (10:23)
[2018-12-02] MEDS: NICOTINE 14 MG/24 HOURS TOPICAL PATCH TD SCH (10:24)
[2018-12-02] MEDS: NICOTINE POLACRILEX 2 MG GUM BC PRN ×3 (10:25→17:45)
[2018-12-02] MEDS: THIAMINE HCL 100 MG TABLET (FP) PO SCH (21:44)
[2018-12-02] MEDS: MELATONIN 5 MG TABLETS PO PRN (21:44)
[2018-12-02] MEDS: QUEtiapine FUMARATE 300 MG TABLET PO SCH (21:44)
[2018-12-03] MEDS: NICOTINE 14 MG/24 HOURS TOPICAL PATCH TD SCH (10:21)
[2018-12-03] MEDS: ESCITALOPRAM OXALATE 10 MG TABLET (FP) PO SCH (10:21)
[2018-12-03] MEDS: RIVAROXABAN 20 MG TABLET PO SCH (10:21)
[2018-12-03] MEDS: PANTOPRAZOLE 40 MG TABLET (FP) PO SCH (10:21)
[2018-12-03] MEDS: PRENATAL VITAMINS W/ FOLIC ACID TABLET (FP) PO SCH (10:21)
[2018-12-03] MEDS: NICOTINE POLACRILEX 2 MG GUM BC PRN (10:22)
[2018-12-03] MEDS: TOLNAFTATE 1% CREAM 15 GM TUBE TP SCH ×2 (10:22→21:41)
[2018-12-03] MEDS: THIAMINE HCL 100 MG TABLET (FP) PO SCH (21:39)
[2018-12-03] MEDS: MELATONIN 5 MG TABLETS PO PRN (21:39)
[2018-12-03] MEDS: QUEtiapine FUMARATE 300 MG TABLET PO SCH (21:39)
[2018-12-04] MEDS: PRENATAL VITAMINS W/ FOLIC ACID TABLET (FP) PO SCH (09:56)
[2018-12-04] MEDS: PANTOPRAZOLE 40 MG TABLET (FP) PO SCH (09:56)
[2018-12-04] MEDS: ESCITALOPRAM OXALATE 10 MG TABLET (FP) PO SCH (09:56)
[2018-12-04] MEDS: RIVAROXABAN 20 MG TABLET PO SCH (09:57)
[2018-12-04] MEDS: ACETAMINOPHEN 325 MG TABLET (FP) PO PRN ×2 (09:59→15:47)
[2018-12-04] MEDS: TOLNAFTATE 1% CREAM 15 GM TUBE TP SCH ×2 (09:59→21:33)
[2018-12-04] MEDS: NICOTINE POLACRILEX 2 MG GUM BC PRN ×2 (09:59→18:33)
[2018-12-04] MEDS: NICOTINE 14 MG/24 HOURS TOPICAL PATCH TD SCH (10:01)
[2018-12-04] MEDS: QUEtiapine FUMARATE 300 MG TABLET PO SCH (21:32)
[2018-12-04] MEDS: MELATONIN 5 MG TABLETS PO PRN (21:32)
[2018-12-04] MEDS: THIAMINE HCL 100 MG TABLET (FP) PO SCH (21:32)
[2018-12-05 07:21] VITALS: BP 126/68; PULSE 103; TEMP 97.5
[2018-12-05] MEDS: ESCITALOPRAM OXALATE 10 MG TABLET (FP) PO SCH (09:42)
[2018-12-05] MEDS: TOLNAFTATE 1% CREAM 15 GM TUBE TP SCH (09:42)
[2018-12-05] MEDS: PANTOPRAZOLE 40 MG TABLET (FP) PO SCH (09:42)
[2018-12-05] MEDS: NICOTINE 14 MG/24 HOURS TOPICAL PATCH TD SCH (09:42)
[2018-12-05] MEDS: RIVAROXABAN 20 MG TABLET PO SCH (09:42)
[2018-12-05] MEDS: PRENATAL VITAMINS W/ FOLIC ACID TABLET (FP) PO SCH (09:42)
[2018-12-05] MEDS: ACETAMINOPHEN 325 MG TABLET (FP) PO PRN (09:43)
--- NOTE | 2018-12-05 09:45 | PN ---
[facility] Progress Note Note: Patient is discharged today. Scripts for 30 days supply of medications(Lexapro, Buspar, Seroquel) are electronically transmitted to [facility] at [address] [place] [address]
--- NOTE | 2018-12-05 11:15 | PN ---
[facility] Progress Note Note: PT COMPLETED REHAB AND DISCHARGED TODAY. PT MET WITH HIS COUNSELOR AND WAS REFERRED TO [facility]. PT STATES HIS MEDICAL MANAGEMENT IS WITH [place]. 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 PT IS ALERT O X 3. DENIES S/H/I. Home Medications Medication Instructions Recorded Buspirone HCl [Buspar -] 15 mg PO BID #60 tablet 12/05/18 Escitalopram Oxalate [Lexapro -] 30 mg PO DAILY #90 tablet 12/05/18 Pantoprazole Sodium [Protonix -] 40 mg PO DAILY #30 tablet.ec 12/05/18 Quetiapine Fumarate [Seroquel -] 600 mg PO HS #60 tablet 12/05/18 Rivaroxaban [Xarelto -] 20 mg PO DAILY #30 tablet 12/05/18 Vital Signs (72 hours) 12/03/18 12/03/18 12/03/18 00:30 03:30 06:58 Temperature 97.7 F Pulse Rate 98 H Respiratory 18 18 18 Rate Blood Pressure 111/72 12/04/18 12/04/18 12/04/18 00:30 03:30 06:59 Temperature 97.2 F L Pulse Rate 97 H Respiratory 18 18 18 Rate Blood Pressure 121/77 12/05/18 12/05/18 12/05/18 00:30 03:30 07:20 Temperature 97.5 F L Pulse Rate 103 H Respiratory 18 18 18 Rate Blood Pressure 126/68 Laboratory Tests 11/08/18 11/09/18 11/09/18 22:33 08:55 08:55 WBC 11.6 H RBC 4.54 Hgb 12.7 Hct 37.0 MCV 81.5 MCH 27.9 MCHC 34.3 RDW 14.8 Plt Count 319 MPV 7.8 Sodium 134 L Potassium 3.6 Chloride 98 Carbon Dioxide 31 Anion Gap 5 L BUN 14 Creatinine 1.0 Creat Clearance w eGFR > 60 Random Glucose 140 H Calcium 9.3 Total Bilirubin 1.1 H AST 32 ALT 29 Alkaline Phosphatase 121 H Total Protein 8.9 H Albumin 4.3 Urine Color Red Urine Appearance Turbid Urine pH 6.0 Ur Specific [place] 1.024 Urine Protein 1+ H Urine Glucose (UA) Negative Urine Ketones Negative Urine Blood Negative Urine Nitrite Negative Urine Bilirubin Negative Urine Urobilinogen Negative Ur Leukocyte Esterase Negative Urine WBC (Auto) 2 Urine RBC (Auto) 2 Ur Epithelial Cells Rare Urine Bacteria Few Urine Mucus Many RPR Titer 11/09/18 11/16/18 11/27/18 08:55 07:35 07:50 WBC RBC Hgb Hct MCV MCH MCHC RDW Plt Count MPV Sodium 140 138 Potassium 4.2 4.2 Chloride 103 102 Carbon Dioxide 28 30 Anion Gap 9 5 L BUN 16 16 Creatinine 0.9 0.9 Creat Clearance w eGFR > 60 > 60 Random Glucose 128 H 98 Calcium 9.6 9.1 Total Bilirubin 0.4 0.5 AST 24 22 ALT 52 29 Alkaline Phosphatase 119 H 100 Total Protein 8.4 H 7.5 Albumin 4.0 3.6 Urine Color Urine Appearance Urine pH Ur Specific [place] Urine Protein Urine Glucose (UA) Urine Ketones Urine Blood Urine Nitrite Urine Bilirubin Urine Urobilinogen Ur Leukocyte Esterase Urine WBC (Auto) Urine RBC (Auto) Ur Epithelial Cells Urine Bacteria Urine Mucus RPR Titer Nonreactive NAD MEDICALLY STABLE PLAN:DISCUSSED WITH PATIENT TO FOLLOW UP AT [facility] WITH HIS PCP FOR MEDICAL MANAGEMENT AFTER [facility] AT [facility]. FOLLOW [facility] AT [facility] TODAY FOR [facility] ON 12/05/18 AT 11:55 A.M. TO TAKE COPIES OF LAB AND LAST VIVITROL ADMINISTRATION DOCUMENT TO REFERRAL. REMINDED NEXT DOSE WILL BE December AT HIS REFERRAL CLINIC.
== END 2018-12-05 10:40 | disposition other institution (70) | DRG 772 ==
LOC: YASAS 13:21 → Y5N 18:03
PROVIDERS: ADMIT Neuromusculoskeletal Medicine & OMM; ATTEND Neuromusculoskeletal Medicine & OMM
PROC: HZ42ZZZ Group Counseling for Substance Abuse Treatment, Cognitive-Behavioral (ICD-10-PCS; principal; 2018-11-08)
DX: F10.20 Alcohol dependence, uncomplicated (principal); F13.20 Sedative, hypnotic or anxiolytic dependence, uncomplicated; F17.210 Nicotine dependence, cigarettes, uncomplicated; F31.9 Bipolar disorder, unspecified; F19.280 Other psychoactive substance dependence with psychoactive substance-induced anxiety disorder; F19.282 Other psychoactive substance dependence with psychoactive substance-induced sleep disorder; F41.9 Anxiety disorder, unspecified; B35.3 Tinea pedis; L03.115 Cellulitis of right lower limb; K21.9 Gastro-esophageal reflux disease without esophagitis; Z86.711 Personal history of pulmonary embolism; Z79.01 Long term (current) use of anticoagulants
CPT/HCPCS: 36415; 80053; 81003; 81015; 85027; 86593; 93005; 93010; J2315